=== PATIENT | female | born 1970 | race Two or more races ===

== ENCOUNTER 2024-01-15 15:30 | Emergency (ER) | payer MEDICAID, OTHER ==
[2024-01-15 15:59] VITALS: BP 168/91; PULSE 89; RESP 20; O2SAT 95
[2024-01-15 16:29] LABS: Basophils # (auto) 0.1 10 ^3/uL (0-0.2); Basophils % (auto) 0.9 % (0.0-2.0); Eosinophils # (auto) 0.2 10 ^3/uL (0-0.8); Eosinophils % (auto) 3.7 % (0.0-7.0); Hematocrit 40.5 % (36.0-46.0); Hemoglobin 14.2 g/dL (12.2-16.2); Lymphocytes # (auto) 1.3 10 ^3/uL (0.4-5.4); Lymphocytes % (auto) 22.8 % (10.0-50.0); Mean Corpuscular Hemoglobin 32.5 pg (28.0-32.0); Mean Corpuscular Hgb Conc. 35.2 g/dL (32.0-36.0); Mean Corpuscular Volume 92.3 fL (80.0-100.0); Monocytes # (auto) 0.4 10 ^3/uL (0-1.3); Monocytes % (auto) 6.4 % (0.0-12.0); Neutrophils # (auto) 3.9 10 ^3/uL (1.6-8.6); Neutrophils % (auto) 66.2 % (37.0-80.0); Nucleated Red Blood Cells % 0.1 %; Platelet Count (auto) 215 10^3/uL (140-450); Red Blood Cells 4.39 10^6/uL (4.0-5.20); Red Cell Distribution Width 12.4 % (11.8-14.3); White Blood Cell 5.9 10^3/uL (4.4-10.8)
[2024-01-15 16:46] LABS: Alanine Aminotransferase 15 U/L (7-40); Albumin 4.2 g/dL (3.2-4.8); Alkaline Phosphatase 125 U/L (46-116); Aspartate Aminotransferase 14 U/L (13-40); BUN/Creatinine Ratio 16.5 (10.0-20.0); Bilirubin, Total 0.5 mg/dL (0.2-1.0); Blood Urea Nitrogen 14 mg/dL (9-23); Calcium 9.5 mg/dL (8.7-10.4); Chloride 104 mmol/L (98-107); Glucose 377 mg/dL (74-106); Magnesium 1.9 mg/dL (1.6-2.6); Potassium 4.7 mmol/L (3.5-5.1); Sodium 137 mmol/L (136-145); Total Protein 6.6 g/dL (5.7-8.2)
[2024-01-15 16:54] LABS: Anion Gap 9 (5-15); Carbon Dioxide 24 mmol/L (20-31)
[2024-01-15] MEDS ORDERED: SODIUM CHLORIDE 0.9% 1,000 ML IV ONE (23:15)
[2024-01-15] MEDS ORDERED: METF-489 PO (23:17)
[2024-01-15] MEDS ORDERED: GLIP5TAB21 PO (23:17)
== END 2024-01-16 00:02 | disposition left against medical advice (07) ==
LOC: ER 15:38
DX: E11.65 Type 2 diabetes mellitus with hyperglycemia (principal); I10 Essential (primary) hypertension; E78.5 Hyperlipidemia, unspecified
CPT/HCPCS: 36415; 71046; 80053; 82962; 83735; 84484; 85025; 93005

== ENCOUNTER 2024-08-14 10:18 | Inpatient (IN) | payer MEDICAID, OTHER ==
[~2024-08-14] VITALS: Ht 162.6 cm; Wt 82.7 kg
[~2024-08-14 10:18] MED LIST: GLIP5TAB21 PO; METF-489 PO
[2024-08-14 10:22] VITALS: BP 127/86; RESP 16; TEMP 98.5; O2SAT 100
--- NOTE | 2024-08-14 10:29 | ECG ---
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
[2024-08-14] MEDS ORDERED: PANTOPRAZOLE 40 MG TAB PO ONE (10:45)
[2024-08-14] MEDS ORDERED: LIDOCAINE VISCOUS 2% 15ML UD PO ONE (10:45)
[2024-08-14] MEDS ORDERED: ASPirin-EC 325mg tab PO ONE (10:45)
[2024-08-14 10:48] LABS: Basophils # (auto) 0.1 10 ^3/uL (0-0.2); Eosinophils # (auto) 0.1 10 ^3/uL (0-0.8); Eosinophils % (auto) 2.1 % (0.0-7.0); Hematocrit 41.2 % (36.0-46.0); Hemoglobin 14.4 g/dL (12.2-16.2); Lymphocytes # (auto) 1.4 10 ^3/uL (0.4-5.4); Lymphocytes % (auto) 21.2 % (10.0-50.0); Mean Corpuscular Hemoglobin 29.8 pg (28.0-32.0); Mean Corpuscular Hgb Conc. 34.9 g/dL (32.0-36.0); Mean Corpuscular Volume 85.4 fL (80.0-100.0); Monocytes # (auto) 0.4 10 ^3/uL (0-1.3); Monocytes % (auto) 5.7 % (0.0-12.0); Neutrophils # (auto) 4.5 10 ^3/uL (1.6-8.6); Nucleated Red Blood Cells % 0.2 %; Platelet Count (auto) 223 10^3/uL (140-450); Red Blood Cells 4.82 10^6/uL (4.0-5.20); Red Cell Distribution Width 11.8 % (11.8-14.3); White Blood Cell 6.5 10^3/uL (4.4-10.8)
--- NOTE | 2024-08-14 10:58 | ED.PDOC ---
HPI Comments 53-year-old female coming from Urgent Care presents with a chief complaint of Chest Pain, SOB, and constipation x 3 days. Patient states that her pain is localized to her sternal region, nonradiating, and describes as heaviness. Patient mentions that she initially went to urgent care because her symptoms have been worsening over the last few days. Patient does not take home O2 and takes ASA daily. Patient has history of heart stents. PMHx: DM, HTN, HLD, Breast Cancer, CAD PSHx: Coronary Stents, , Cholecystectomy Good: CP HPI: Poor Historian. REVIEW OF SYSTEMS: CONSTITUTIONAL: Denies acute: fever, diaphoresis, chills, generalized weakness. HEAD: Denies acute: headache, photophobia Eyes: Denies acute: Double vision, vision loss, eye pain, eye discharge. EARS: Denies acute: tinnitus, hearing loss, ear discharge, ear pain, THROAT: Denies acute: sore throat, swelling, difficulty swallowing , pain with swallowing, change in voice. NECK: Denies acute: neck pain, neck swelling, stiff neck. HEART: Denies acute : palpitations, LUNGS: Denies acute: , wheezing, cough, hemoptysis ABDOMEN: Denies acute: abdominal pain, Nausea, Vomiting, diarrhea, melena , hematemesis, hematochezia SKIN: Denies acute: rash, redness, lesions, itchiness. EXTREMITIES: Denies acute: calf pain, numbness, tingling, weakness, denies pain in extremity. Denies acute: Low back pain. Neuro: Denies acute: focal neurological deficit, motor or sensory focal neurological deficit, tremors, seizure like activity, confusion, dizziness, change in mental status, loss of bowel or bladder function, cauda equina like symptoms. : Denies acute: dysuria, hematuria, flank pain, increase in urinary frequency. PSYCH: Denies acute: hallucination, suicidal ideation, homicidal ideation. FEMALE: Denies acute: abnormal vaginal bleeding, foul odor, unusual discharge. PHYSICAL EXAM: General: ---mild---acute distress, awake and alert. Head: normocephalic, atraumatic. Neck: supple, trachea is midline, no swelling. Throat: Normal phonation. Eyes:, no erythema, no purulent discharge, no proptosis, no icterus. Heart: regular rate, regular rhythm, no significant murmur appreciated. Lungs: no apparent respiratory distress, Able to speak in full sentences. No wheezing, no rhonchi, no crackles. No stridors Clear to auscultation bilaterally. Abdomen: non tender to palpation, non distended, soft, no guarding, no rebound, + bowel sounds. Neuro: Awake, Alert, oriented to name, self, situation, follows commands GCS=15. Speech is normal. Skin: no petechia, no purpura, no cyanosis, non-pale, not jaundice. Lower extremities: --no - Pitting edema no deformity, no focal swelling, no calf TTP. Makes eye contact. moves all four extremities. Face: no apparent facial droop. Ambulating in the ED independently. No nuchal rigidity, Kernig's sign, Brudzinski's sign, no meningeal signs. ED COURSE: Chief Complaint: Chest Pain Time Seen by MD: 10:23 Reviewed Notes: Medications, Allergies Allergies: Coded Allergies: NO KNOWN ALLERGIES (Unverified , 01/15/24) Home Meds Active Scripts Metformin Hydrochloride (METFORMIN HCL ER) 500 Mg Tab, 1 TAB PO DAILY, #90 TAB 3 Refills Prov:MATHIEU PICHARDO 01/15/24 Glipizide (Glipizide) 5 Mg Tab, 1 TAB PO BID, #180 TAB 1 Refill Prov:MATHIEU PICHARDO 01/15/24 Information Source: Patient Mode of Arrival: Wheelchair Past Medical History PAST MEDICAL HISTORY: Cancer (BREAST), DM, High Lipids, HTN Surgical History: Cholecystectomy, , [employer] DATABASE 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 Was a procedure done?: No CP Differential Dx Differential Diagnosis: N/A Differential Diagnosis: Other (Ddx include but not limitied to gastritis, musculoskeletal pain, radiculopathy, atypical chest pain, dissection, aneurysm, ACS, unstable angina, hiatal hernia, GERD, anxiety, costochondritis, PE, pneumothroax, neoplasm, cardiac ischemia, drug abuse, anemia.) X-Ray, Labs, Meds, VS Vital Signs Date Time Temp Pulse Resp B/P (MAP) Pulse Ox O2 Delivery O2 Flow Rate FiO2 08/14/24 11:28 87 08/14/24 10:27 86 08/14/24 10:22 98.5 87 16 127/86 (100) 100 98.5 Lab Test 08/14/24 11:22 08/14/24 10:30 Range/Units Troponin I High Sensitivity < 3 L < 3 L </=34 ng/L White Blood Count 6.5 4.4-10.8 10^3/uL Red Blood Count 4.82 4.0-5.20 10^6/uL Hemoglobin 14.4 12.2-16.2 g/dL Hematocrit 41.2 36.0-46.0 % Mean Corpuscular Volume 85.4 80.0-100.0 fL Mean Corpuscular Hemoglobin 29.8 28.0-32.0 pg Mean Corpuscular Hemoglobin Concent 34.9 32.0-36.0 g/dL Red Cell Distribution Width 11.8 11.8-14.3 % Platelet Count 223 140-450 10^3/uL Mean Platelet Volume 7.6 6.9-10.8 fL Neutrophils (%) (Auto) 70.0 37.0-80.0 % Lymphocytes (%) (Auto) 21.2 10.0-50.0 % Monocytes (%) (Auto) 5.7 0.0-12.0 % Eosinophils (%) (Auto) 2.1 0.0-7.0 % Basophils (%) (Auto) 1.0 0.0-2.0 % Neutrophils # (Auto) 4.5 1.6-8.6 10 ^3/uL Lymphocytes # (Auto) 1.4 0.4-5.4 10 ^3/uL Monocytes # (Auto) 0.4 0-1.3 10 ^3/uL Eosinophils # (Auto) 0.1 0-0.8 10 ^3/uL Basophils # (Auto) 0.1 0-0.2 10 ^3/uL Nucleated Red Blood Cells 0.2 % D-Dimer, Quantitative 0.22 0.0-0.49 mg/L FEU Sodium Level 138 136-145 mmol/L Potassium Level 4.4 3.5-5.1 mmol/L Chloride Level 102 98-107 mmol/L Carbon Dioxide Level 28 20-31 mmol/L Anion Gap 8 5-15 Blood Urea Nitrogen 12 9-23 mg/dL Creatinine 0.82 0.550-1.02 mg/dL Glomerular Filtration Rate Calc 86 >90 mL/min BUN/Creatinine Ratio 14.6 10.0-20.0 Serum Glucose 393 H 74-106 mg/dL Lactic Acid Level 1.9 0.4-2.0 mmol/L Calcium Level 9.9 8.7-10.4 mg/dL Total Bilirubin 0.6 0.2-1.0 mg/dL Aspartate Amino Transferase (AST) 11 L 13-40 U/L Alanine Aminotransferase (ALT) 17 7-40 U/L Alkaline Phosphatase 127 H 46-116 U/L B-Type Natriuretic Peptide 16.49 0-100 pg/mL Total Protein 7.1 5.7-8.2 g/dL Albumin 4.3 3.2-4.8 g/dL Lipase 63 H 12-53 U/L PATIENT: SHIRLEY ESCALANTEACCT: [id number]: [id number] : 1970 LOC: ER ROOM / BED: / AGE / SEX: 53 / F ADM STATUS: REG ER SERVICE [id number] ORDERING PHYSICIAN: CHRISTINE SINGH DO PROCEDURE(s): CXRP - CHEST PORTABLE REASON: CP ORDER NUMBER(s): [id number], ACCESSION NUMBER(s): [id number] XY CHEST PORTABLE, HISTORY: CP COMPARISON: None None TECHNICAL DATA: 1 view of the chest was obtained. FINDINGS: Lines and tubes: None Cardiomediastinal silhouette: normal Pulmonary vasculature: normal Lung expansion: normal Lung airspace: normal Lung interstitium: normal Pleura: normal Pneumothorax: no Bones: Unremarkable Other: no IMPRESSION: No acute intrathoracic abnormality. ATED BY: SYLVESTER CROCKETT MD DICTATED DATE/TIME: 08/14/241103 SIGNED BY: SYLVESTER CROCKETT MD SIGNED DATE/TIME: 08/14/241103 Time of 1ST Reevaluation: 10:53 Reevaluation 1ST: Unchanged Patient Education/Counseling: Diagnosis, Treatment Family Education/Counseling: No Family Present Comments Patient presented with the above HPI.----chest pain/dyspnea--workup was initiated. patient was found with the above mentioned diagnosis. the following medications were ordered: please refer to order lists of meds and tests obtained by myself Dr. Singh. Patient ED course and VS have been stabilized. Patient has been reassessed in the ED and remained in a stable condition. Pertinent incidental findings were discussed with the patient and/or family. Patient/family voices understanding and is agreeable with plan. Patient has been observed in the ED adequate length of time to insure improvement/stability. Escalation of care considered: Consideration of escalation to observation or admission Patient was ADMITTED to the medicine team for further evaluation and treatment of their presentation. All the reports of any imaging studies that were ordered by myself were reviewed by myself. Departure 1 Departure Time of Disposition: 11:17 Impression: Primary Impression: Chest pain Additional Impression: Dyspnea Disposition: ADMITTED INPATIENT Admit to: Tele Condition: Guarded Discharged With: Self Critical Care Note Critical Care Time?: No Heart Score Heart Score: Heart Score Response (Comments) Value History Moderate Suspicious 1 EKG Normal 0 Age 45-64 1 Risk Factors >3 or Hx ASHD 2 Troponin Normal limit 0 Total 4 I personally scribed for CHRISTINE SINGH DO ([email or web address]) on 08/14/24 at 10:58. Electronically submitted by Leonard Gutierrez ([email or web address]). I personally scribed for CHRISTINE SINGH DO ([email or web address]) on 08/14/24 at 12:43. Electronically submitted by Leonard Gutierrez ([email or web address]). CHRISTINE SINGH DO August 14, 2024 10:58
[2024-08-14 11:04] LABS: Alanine Aminotransferase 17 U/L (7-40); Anion Gap 8 (5-15); BUN/Creatinine Ratio 14.6 (10.0-20.0); Blood Urea Nitrogen 12 mg/dL (9-23); Calcium 9.9 mg/dL (8.7-10.4); Carbon Dioxide 28 mmol/L (20-31); Chloride 102 mmol/L (98-107); Potassium 4.4 mmol/L (3.5-5.1); Sodium 138 mmol/L (136-145); Total Protein 7.1 g/dL (5.7-8.2)
[2024-08-14 11:05] LABS: Albumin 4.3 g/dL (3.2-4.8); Bilirubin, Total 0.6 mg/dL (0.2-1.0)
[2024-08-14 11:06] LABS: Alkaline Phosphatase 127 U/L (46-116); Aspartate Aminotransferase 11 U/L (13-40); Glucose 393 mg/dL (74-106)
--- NOTE | 2024-08-14 11:06 | DVH ---
XY CHEST PORTABLE, HISTORY: CP COMPARISON: None None TECHNICAL DATA: 1 view of the chest was obtained. FINDINGS: Lines and tubes: None Cardiomediastinal silhouette: normal Pulmonary vasculature: normal Lung expansion: normal Lung airspace: normal Lung interstitium: normal Pleura: normal Pneumothorax: no Bones: Unremarkable Other: no IMPRESSION: No acute intrathoracic abnormality.
[2024-08-14 11:19] LABS: Lipase 63 U/L (12-53)
[2024-08-14 11:28] VITALS: PULSE 87
--- NOTE | 2024-08-14 14:22 | DVHHP2 ---
Admitting Diagnosis: Chest Pain and SOB. History of Present Illness Patient is a 53-year-old female with a complaint of chest pain, shortness of breath, and constipation for the past 3 days. Patient states that her pain does not radiate. Patient states that she went to the urgent care but her symptoms have progressively became worse over the past few days. Patient denies home O2 use. While in the emergency department the patient was evaluated by the provider, As per provider: Labs, vital signs, and imagining monitored. Patient will be admitted for further evaluation and treatment. I discussed admission with the patient/family and is in agreement to treatment plan. Allergies: Coded Allergies: NO KNOWN ALLERGIES (Unverified , 01/15/24) Home Meds Active Scripts Metformin Hydrochloride (METFORMIN HCL ER) 500 Mg Tab, 1 TAB PO DAILY, #90 TAB 3 Refills Prov:MATHIEU PICHARDO 01/15/24 Glipizide (Glipizide) 5 Mg Tab, 1 TAB PO BID, #180 TAB 1 Refill Prov:MATHIEU PICHARDO 01/15/24 Current Medications Current Medications Medications (Trade) Dose Ordered Sig/Lisa Route PRN Reason Start Time Stop Time Status Last Admin Acetaminophen/ Hydrocodone Bitart (Boring 5/325MG Tab) 1 tab Q4HP PRN PO MODERATE PAIN (4-6 PAIN SCALE) 08/14/24 14:30 Temazepam (Restoril) 15 mg QHSP PRN PO FOR INSOMNIA 08/14/24 14:30 Ondansetron HCl (Zofran) 4 mg Q4HP PRN IV NAUSEA / VOMITING 08/14/24 14:30 Docusate Sodium (Colace Capsule) 100 mg BIDPRN PRN PO FOR CONSTIPATION 08/14/24 14:30 Enoxaparin Sodium (Lovenox) 40 mg DAILY SC 08/15/24 10:00 Acetaminophen (Tylenol Tablet) 650 mg Q6HP PRN PO PAIN SCALE 1-3 OR TEMP>100.4 08/14/24 14:30 Morphine Sulfate 2 mg Q4HPRN PRN IV SEVERE PAIN (7-10 PAIN SCALE) 08/14/24 14:30 Pantoprazole Sodium (Protonix) 40 mg DAILY IV 08/15/24 10:00 Nitroglycerin (Ntrostat Sublingual) 0.4 mg Q5MINP PRN SL FOR CHEST PAIN 08/14/24 14:30 Morphine Sulfate 2 mg Q30M PRN IV FOR CHEST PAIN 08/14/24 14:30 Diagnostic Test (Pha) (Accu-Chek Comfort Curve T) 1 strip ACHS 08/14/24 17:00 Insulin Human Regular (InsuLIN R) HS SC 08/14/24 22:00 Insulin Human Regular (InsuLIN R) AC SC 08/14/24 17:00 Dextrose 50 ml UD PRN IV Blood Sugar LESS THAN 60 08/14/24 14:30 Review of Systems Constitutional: denies chills, denies fever, denies malaise Eyes: denies eye pain, denies vision change ENT: denies ear pain, denies headache, denies nasal congestion, denies painful swallowing, denies voice change Cardiovascular: denies edema, denies orthopnea, Respiratory: denies cough, denies shortness of breath Gastrointestinal: denies constipation, denies diarrhea, denies nausea, denies vomiting Genitourinary: denies dysuria, denies frequent urination, denies urethral discharge Musculoskeletal: denies back pain, denies joint pain, denies muscle pain Skin: denies bruising, denies itching, denies rash Neurological: denies focal weakness, denies headache, denies sensory changes Psychiatric: denies anxiety, denies depression Endocrine: denies polydipsia, denies polyuria Hematologic/Lymphatic: denies easy bleeding, denies easy bruising, denies enlarged lymph nodes Allergic/Immunologic: denies allergy, denies hives Vital Signs Vital Signs Date Time Temp Pulse Resp B/P (MAP) Pulse Ox O2 Delivery O2 Flow Rate FiO2 08/14/24 11:28 87 08/14/24 10:22 98.5 16 127/86 (100) 100 98.5 Physical Exam General Appearance: alert, no distress HEENT: EOMI, PERRLA, normal external inspect of ears, no icterus, no nasal drainage Neck: no carotid bruit, no jugular venous distention (JVD), no lymphadenopathy Chest: normal thorax Respiratory: clear to auscultation, normal air movement Cardiovascular: no diastolic murmur, no jugular venous distention (JVD), no rub, no systolic murmur Abdominal: soft, no hepatomegaly, no mass, no splenomegaly, no tenderness Genitourinary: grossly normal external Musculoskeletal: no joint tenderness, no swelling Extremities: normal pulses, no calf tenderness, no clubbing, no cyanosis, no edema Skin: no bruising, no jaundice, no rash Neurological: alert, No focal deficit Results Labs Test 08/14/24 11:22 08/14/24 10:30 Range/Units Troponin I High Sensitivity < 3 L </=34 ng/L White Blood Count 6.5 4.4-10.8 10^3/uL Red Blood Count 4.82 4.0-5.20 10^6/uL Hemoglobin 14.4 12.2-16.2 g/dL Hematocrit 41.2 36.0-46.0 % Mean Corpuscular Volume 85.4 80.0-100.0 fL Mean Corpuscular Hemoglobin 29.8 28.0-32.0 pg Mean Corpuscular Hemoglobin Concent 34.9 32.0-36.0 g/dL Red Cell Distribution Width 11.8 11.8-14.3 % Platelet Count 223 140-450 10^3/uL Mean Platelet Volume 7.6 6.9-10.8 fL Neutrophils (%) (Auto) 70.0 37.0-80.0 % Lymphocytes (%) (Auto) 21.2 10.0-50.0 % Monocytes (%) (Auto) 5.7 0.0-12.0 % Eosinophils (%) (Auto) 2.1 0.0-7.0 % Basophils (%) (Auto) 1.0 0.0-2.0 % Neutrophils # (Auto) 4.5 1.6-8.6 10 ^3/uL Lymphocytes # (Auto) 1.4 0.4-5.4 10 ^3/uL Monocytes # (Auto) 0.4 0-1.3 10 ^3/uL Eosinophils # (Auto) 0.1 0-0.8 10 ^3/uL Basophils # (Auto) 0.1 0-0.2 10 ^3/uL Nucleated Red Blood Cells 0.2 % D-Dimer, Quantitative 0.22 0.0-0.49 mg/L FEU Sodium Level 138 136-145 mmol/L Potassium Level 4.4 3.5-5.1 mmol/L Chloride Level 102 98-107 mmol/L Carbon Dioxide Level 28 20-31 mmol/L Anion Gap 8 5-15 Blood Urea Nitrogen 12 9-23 mg/dL Creatinine 0.82 0.550-1.02 mg/dL Glomerular Filtration Rate Calc 86 >90 mL/min BUN/Creatinine Ratio 14.6 10.0-20.0 Serum Glucose 393 H 74-106 mg/dL Lactic Acid Level 1.9 0.4-2.0 mmol/L Calcium Level 9.9 8.7-10.4 mg/dL Total Bilirubin 0.6 0.2-1.0 mg/dL Aspartate Amino Transferase (AST) 11 L 13-40 U/L Alanine Aminotransferase (ALT) 17 7-40 U/L Alkaline Phosphatase 127 H 46-116 U/L B-Type Natriuretic Peptide 16.49 0-100 pg/mL Total Protein 7.1 5.7-8.2 g/dL Albumin 4.3 3.2-4.8 g/dL Lipase 63 H 12-53 U/L Admitting Diagnosis: 1. Unstable angina Cardiology consult, monitoring 2. Obesity Diet education, monitoring 3. DM II with hyperglycemia Insulin sliding scale 4. Elevated lipase levels Trend troponin levels Plan discussed with: Patient, Other CLARE BILLS NP August 14, 2024 14:22
[2024-08-14] MEDS ORDERED: MORPHINE SULFATE INJ 2 MG/ml SYRG IV PRN ×2 (14:30)
[2024-08-14] MEDS ORDERED: ACETAMINOPHEN 325 MG TAB PO PRN (14:30)
[2024-08-14] MEDS ORDERED: NITROGLYCERIN 0.4 MG SL TAB SL PRN (14:30)
[2024-08-14] MEDS ORDERED: HYDROcodone-ACET 5/325MG TAB PO PRN (14:30)
[2024-08-14] MEDS ORDERED: DEXTROSE (50%) 50ML SYRG IV PRN (14:30)
[2024-08-14] MEDS ORDERED: ONDANSETRON HCL 4 MG/2 ML VIAL IV PRN (14:30)
[2024-08-14] MEDS ORDERED: DOCUSATE SOD 100 MG CAP PO PRN (14:30)
[2024-08-14] MEDS ORDERED: TEMAZEPAM 15 MG CAP PO PRN (14:30)
[2024-08-14] MEDS ORDERED: ACCU-CHEK COMFORT CURVE STRIP VI SCH (17:00)
[2024-08-14] MEDS ORDERED: InsuLIN REG 1unit/0.01ml Soln (100units/ml) SC SCH ×2 (17:00→22:00)
--- NOTE | 2024-08-15 08:03 | ECG ---
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
[2024-08-15] MEDS ORDERED: PANTOPRAZOLE 40 MG/10 ML VIAL INJ IV SCH (10:00)
[2024-08-15] MEDS ORDERED: ENOXAPARIN SOD 40 MG/0.4 ML SYRINGE SC SCH (10:00)
--- NOTE | 2024-08-15 10:56 | DVHDS2 ---
Discharge Summary Date of Admission August 14, 2024 at 14:19 Date of Discharge: August 14, 2024 Labs/Diagnostic Data: Laboratory Results Test 08/14/24 11:22 08/14/24 10:30 Troponin I High Sensitivity < 3 ng/L (</=34) White Blood Count 6.5 10^3/uL (4.4-10.8) Red Blood Count 4.82 10^6/uL (4.0-5.20) Hemoglobin 14.4 g/dL (12.2-16.2) Hematocrit 41.2 % (36.0-46.0) Mean Corpuscular Volume 85.4 fL (80.0-100.0) Mean Corpuscular Hemoglobin 29.8 pg (28.0-32.0) Mean Corpuscular Hemoglobin Concent 34.9 g/dL (32.0-36.0) Red Cell Distribution Width 11.8 % (11.8-14.3) Platelet Count 223 10^3/uL (140-450) Mean Platelet Volume 7.6 fL (6.9-10.8) Neutrophils (%) (Auto) 70.0 % (37.0-80.0) Lymphocytes (%) (Auto) 21.2 % (10.0-50.0) Monocytes (%) (Auto) 5.7 % (0.0-12.0) Eosinophils (%) (Auto) 2.1 % (0.0-7.0) Basophils (%) (Auto) 1.0 % (0.0-2.0) Neutrophils # (Auto) 4.5 10 ^3/uL (1.6-8.6) Lymphocytes # (Auto) 1.4 10 ^3/uL (0.4-5.4) Monocytes # (Auto) 0.4 10 ^3/uL (0-1.3) Eosinophils # (Auto) 0.1 10 ^3/uL (0-0.8) Basophils # (Auto) 0.1 10 ^3/uL (0-0.2) Nucleated Red Blood Cells 0.2 % D-Dimer, Quantitative 0.22 mg/L FEU (0.0-0.49) Sodium Level 138 mmol/L (136-145) Potassium Level 4.4 mmol/L (3.5-5.1) Chloride Level 102 mmol/L (98-107) Carbon Dioxide Level 28 mmol/L (20-31) Anion Gap 8 (5-15) Blood Urea Nitrogen 12 mg/dL (9-23) Creatinine 0.82 mg/dL (0.550-1.02) Glomerular Filtration Rate Calc 86 mL/min (>90) BUN/Creatinine Ratio 14.6 (10.0-20.0) Serum Glucose 393 mg/dL (74-106) Lactic Acid Level 1.9 mmol/L (0.4-2.0) Calcium Level 9.9 mg/dL (8.7-10.4) Total Bilirubin 0.6 mg/dL (0.2-1.0) Aspartate Amino Transferase (AST) 11 U/L (13-40) Alanine Aminotransferase (ALT) 17 U/L (7-40) Alkaline Phosphatase 127 U/L (46-116) B-Type Natriuretic Peptide 16.49 pg/mL (0-100) Total Protein 7.1 g/dL (5.7-8.2) Albumin 4.3 g/dL (3.2-4.8) Lipase 63 U/L (12-53) Other Laboratory Tests 08/14/24 10:30 Brief Hx & Hospital Course: Patient is a 53-year-old female with a complaint of chest pain, shortness of breath, and constipation for the past 3 days. Patient states that her pain does not radiate. Patient states that she went to the urgent care but her symptoms have progressively became worse over the past few days. Patient denies home O2 use. While in the emergency department the patient was evaluated by the provider, As per provider: Labs, vital signs, and imagining monitored. Patient left AGAINST MEDICAL ADVICE. Patient decided to leave prior to completing recommended evaluation and treatment. The patient decided they wanted to leave AMA. The patient was informed about the risk of leaving. And was informed about the risk that are involved if they left without any treatment which may include . The patient was okay with it and decided to leave without any intervention. The patient was told to return for any worsening symptoms. Condition at Discharge: Unstable Final Diagnosis/Problems List Unstable angina Obesity DM II with hyperglycemia Elevated lipase levels Discharge Disposition: AMA Discharge Statement: "Patient was advised to return to the ER or call 911 if any headaches, dizziness, shortness of breath, chest pain, abdominal pain, bleeding, fevers, or worsening of medical condition. Patient was counseled about treatment plan, medications, possible side effects, patientverbalized understanding. All questions were answered to the best of my ability. This discharge took greater then 30 minutes in planning, reviewing documentation, counseling the patient, and discussing with other team members." ASSESSMENT ASSESSMENT Assessment CLARE BILLS NP August 15, 2024 10:56
== END 2024-08-14 17:41 | disposition left against medical advice (07) | DRG 198 ==
LOC: ER 10:18 → OVERFLOW 14:19
PROVIDERS: ADMIT Nurse Practitioner; ATTEND Nurse Practitioner
DX: I25.110 Atherosclerotic heart disease of native coronary artery with unstable angina pectoris (principal); E11.65 Type 2 diabetes mellitus with hyperglycemia; I10 Essential (primary) hypertension; E66.9 Obesity, unspecified; Z68.31 Body mass index [BMI] 31.0-31.9, adult; K59.00 Constipation, unspecified; E78.5 Hyperlipidemia, unspecified; R74.8 Abnormal levels of other serum enzymes; Z53.29 Procedure and treatment not carried out because of patient's decision for other reasons; Z87.891 Personal history of nicotine dependence; Z85.3 Personal history of malignant neoplasm of breast; Z85.9 Personal history of malignant neoplasm, unspecified; Z90.49 Acquired absence of other specified parts of digestive tract
CPT/HCPCS: 36415; 36600; 71045; 80053; 82805; 83605; 83690; 83880; 84484; 85025; 85379; 93005; G0378

== ENCOUNTER 2024-11-19 15:49 | Emergency (ER) | payer OTHER ==
[~2024-11-19] VITALS: Ht 165.1 cm; Wt 82.0 kg
[2024-11-19 16:25] LABS: Hematocrit 38.9 % (36.0-46.0); Hemoglobin 13.7 g/dL (12.2-16.2); Mean Corpuscular Hemoglobin 30.5 pg (28.0-32.0); Mean Corpuscular Volume 86.4 fL (80.0-100.0); Nucleated Red Blood Cells % 0.1 %
--- NOTE | 2024-11-19 16:26 | ED.PDOC ---
General HPI Comments 53 y/o F, with PMHx of breast cancer, DM, HLD, and HTN presents to the ED for CC of flank pain. Patient states, she has been experiencing left flank pain directly under her left mastectomy incision x1day. patient reports, seeing her oncologist for SS and was told symptoms were not related. Patient denies back pain, dysuria, vaginal discharge, nausea, vomiting, or fever. No other symptoms or modifying factors present at this time. Patient was hypertensive and tachycardic at arrival. Chief Complaint: Flank Pain Time Seen by MD: 16:20 Reviewed notes: Nurses Notes, Medications, Allergies Allergies: Coded Allergies: NO KNOWN ALLERGIES (Unverified , 01/15/24) Home Meds Active Scripts Metformin Hydrochloride (METFORMIN HCL ER) 500 Mg Tab, 1 TAB PO DAILY, #90 TAB 3 Refills Prov:MATHIEU PICHARDO 01/15/24 Glipizide (Glipizide) 5 Mg Tab, 1 TAB PO BID, #180 TAB 1 Refill Prov:AMTHIEU PICHARDO 01/15/24 Information Source: Patient Mode of Arrival: Ambulatory Severity: Moderate Timing: Days Duration: Since onset Prehospital treatment: None Onset: Spontaneous Symptoms: None History of: None Location: (L)Flank associated signs and symptoms: None Past Medical History PAST MEDICAL HISTORY: Cancer, DM, High Lipids, HTN Surgical History: Cholecystectomy, , [facility] [employer]ING [employer]ESSIONAL History: No Pertinent FLO[employer]ING PROFESSIONAL History Social History Smoker: Quit Greater Than 1 Year Alcohol: Denies ETOH Use Drugs: Denies Drug Use Lives In: Home Constitutional: denies: chills, diaphoresis, fatigue, fever, malaise, sweats, weakness, others EENTM: denies: blurred vision, double vision, ear bleeding, ear discharge, ear drainage, ear pain, ear ringing, eye pain, eye redness, hearing loss, mouth pain, mouth swelling, nasal discharge, nose bleeding, nose congestion, nose pain, photophobia, tearing, throat pain, throat swelling, voice changes, others Respiratory: denies: cough, hemoptysis, orthopnea, SOB at rest, shortness of breath, SOB with excertion, stridor, wheezing, others Cardiovascular: denies: chest pain, dizzy spells, diaphoresis, Dyspnea on exertion, edema, irregular heart beat, left arm pain, lightheadedness, palpitations, PND, syncope, others Gastrointestinal: denies: abdomen distended, abdominal pain, blood streaked bowels, constipated, diarrhea, dysphagia, difficulty swallowing, hematemesis, melena, nausea, poor appetite, poor fluid intake, rectal bleeding, rectal pain, vomiting, others Genitourinary: reports: flank pain (left); denies: abnormal vagina bleeding, burning, dyspareunia, dysuria, frequency, hematuria, incontinence, pain, pregn ant, vagina discharge, urgency, others Neurological: denies: dizziness, fainting, headache, left sided numbness, left sided weakness, numbness, paresthesia, pre-existing deficit, right sided numbness, right sided weakness, seizure, speech problems, tingling, tremors, weakness, others Musculoskeletal: denies: back pain, gout, joint pain, joint swelling, muscle pain, muscle stiffness, neck pain, others Integumetry: denies: bruises, change in color, change in hair/nails, dryness, laceration, lesions, lumps, rash, wounds, others Allergic/Immunocompromised: denies: Difficulty Healing, Frequent Infections, Hives, Itching, others Hematologic/Lymphatic: denies: anemia, blood clots, easy bleeding, easy bruising, swollen glands, others Endocrine: denies: excessive hunger, excessive sweating, excessive thirst, excessive urination, flushing, intolerance to cold, intolerance to heat, unexplained weight gain, unexplained weight loss, others Psychiatric: denies: anxiety, bipolar disorder, depression, hopeless, panic disorder, schizophrenia, sleepless, suicidal, others All Other Systems: Reviewed and Negative Physical Exam General Appearance: Moderate Distress (Moderate distress due to left-sided flank pain concerns. Patient appears older than her chronology. Patient appears to be in poor overall health.), Obese HEENT: Normal ENT Inspection, Pharynx Normal, TMs Normal Neck: Full Range of Motion, Non-Tender, Normal, Normal Inspection Respiratory: Chest Non-Tender, Lungs Clear, No Accessory Muscle Use, No R espiratory Distress, Normal Breath Sounds Cardiovascular: No Edema, No JVD, No Murmur, No Gallop, Normal Peripheral Pulses, Regular Rate/Rhythm Breast Exam: Other (Patient was in a tank top and the left-sided mastectomy scar was noted.), Deferred Gastrointestinal: No Pulsatile Mass, Normal Bowel Sounds, Other (Left-sided flank pain that has nonspecific to the CVA region. Patient states radiates into her belly. Difficult to assess due to body habitus.) Genitalia: Deferred Pelvic: Deferred Rectal: Deferred Extremities: No calf tenderness, Normal capillary refill, Normal inspection, Normal range of motion, Non-tender, No pedal edema Neurologic: Alert Cerebellar Function: NOT DONE Reflexes: NOT DONE Skin: Dry, Normal Color, Warm Lymphatic: No Adenopathy Was a procedure done? Was a procedure done?: No Differential Diagnosis Kidney stone (Female): Pyelonephritis, Urinary obstruction, Urolithiasis, Other (UTI, sepsis, electrolyte abnormality) Kidney stone (Male): N/A Penile/Scrotal: N/A Urinary Problem (Male): N/A X-Ray, Labs, Meds, VS Vital Signs Date Time Temp Pulse Resp B/P (MAP) Pulse Ox O2 Delivery O2 Flow Rate FiO2 11/19/24 21:52 84 16 100 Room Air* 0 21 11/19/24 21:42 98.3 84 16 158/86 (110) 100 98.3 11/19/24 15:50 98.7 103 16 157/74 99 98.7 Lab Test 11/19/24 19:05 11/19/24 18:14 11/19/24 16:05 Range/Units Urine Color Light-yellow Yellow Urine Clarity Clear Clear Urine pH 5.0 5.0-9.0 Urine Specific [place] 1.037 H 1.001-1.035 Urine Protein Negative Negative Urine Ketones Negative Negative Urine Blood Negative Negative /uL Urine Nitrite Negative Negative Urine Bilirubin Negative Negative Urine Urobilinogen Normal Negative mg/dL Urine Leukocyte Esterase Negative Negative /uL Urine RBC 1 0 - 4 /hpf Urine Microscopic WBC 1 0-5 /HPF Urine Squamous Epithelial Cells Mod <5 /hpf Urine Bacteria None seen None Seen /hpf Urine Glucose 4+ H Normal mg/dL Troponin I High Sensitivity < 3 L < 3 L </=34 ng/L White Blood Count 5.9 4.4-10.8 10^3/uL Red Blood Count 4.50 4.0-5.20 10^6/uL Hemoglobin 13.7 12.2-16.2 g/dL Hematocrit 38.9 36.0-46.0 % Mean Corpuscular Volume 86.4 80.0-100.0 fL Mean Corpuscular Hemoglobin 30.5 28.0-32.0 pg Mean Corpuscular Hemoglobin Concent 35.3 32.0-36.0 g/dL Red Cell Distribution Width 12.7 11.8-14.3 % Platelet Count 255 140-450 10^3/uL Mean Platelet Volume 8.0 6.9-10.8 fL Neutrophils (%) (Auto) 72.0 37.0-80.0 % Lymphocytes (%) (Auto) 19.5 10.0-50.0 % Monocytes (%) (Auto) 6.1 0.0-12.0 % Eosinophils (%) (Auto) 1.7 0.0-7.0 % Basophils (%) (Auto) 0.7 0.0-2.0 % Neutrophils # (Auto) 4.2 1.6-8.6 10 ^3/uL Lymphocytes # (Auto) 1.2 0.4-5.4 10 ^3/uL Monocytes # (Auto) 0.4 0-1.3 10 ^3/uL Eosinophils # (Auto) 0.1 0-0.8 10 ^3/uL Basophils # (Auto) 0 0-0.2 10 ^3/uL Nucleated Red Blood Cells 0.1 % Sodium Level 136 136-145 mmol/L Potassium Level 3.7 3.5-5.1 mmol/L Chloride Level 99 98-107 mmol/L Carbon Dioxide Level 29 20-31 mmol/L Anion Gap 8 5-15 Blood Urea Nitrogen 17 9-23 mg/dL Creatinine 1.07 H 0.550-1.02 mg/dL Glomerular Filtration Rate Calc 63 >90 mL/min BUN/Creatinine Ratio 15.9 10.0-20.0 Serum Glucose 457 *H 74-106 mg/dL Calcium Level 9.2 8.7-10.4 mg/dL B-Type Natriuretic Peptide 24.75 0-100 pg/mL Lipase 66 H 12-53 U/L Current Medications Medications (Trade) Dose Ordered Sig/Lisa Route Start Time Stop Time Status Last Admin Ketorolac Tromethamine (Toradol Injection) 30 mg ONCE ONCE IM 11/19/24 16:00 11/19/24 16:01 DC 11/19/24 21:30 Ondansetron HCl (Zofran Po) 4 mg ONCE ONCE PO 11/19/24 16:00 11/19/24 16:01 DC 11/19/24 21:28 Insulin Human Regular (InsuLIN R) 13 units ONCE ONCE SC 11/19/24 21:45 11/19/24 21:46 DC 11/19/24 21:[address] [address] Ph: [phone] DIAGNOSTIC IMAGING Diagnostic Imaging Report : [id number] Signed PATIENT: SHIRLEY ESCALANTE ACCT: [id number] UNIT: [id number] : 1970 LOC: ER ROOM / BED: / AGE / SEX: 53 / F ADM STATUS: REG ER SERVICE 1600 ORDERING PHYSICIAN: ELSY JARRETT PAC PROCEDURE(s): ABPL - CT AB PEL WO CON-NO ORAL OR IV REASON: DIFFUSE LEFT LOWER QUAD PAIN ORDER NUMBER(s): [id number], ACCESSION NUMBER(s): [id number] Exam: CT CT AB PEL WO CON-NO ORAL OR IV History: DIFFUSE LEFT LOWER QUAD PAIN Comparison Study: None TECHNIQUE: Multidetector CT of the abdomen was performed from lung bases to pubic symphysis. Imaging was performed without IV contrast. Axial, coronal and sagittal multiplanar reformats were obtained from the axial data set by the technologist. Radiation Dose Information: CT Dose: CTDI volume is 18.98 mGy. Dose-length product is 1074.48 mGy*cm FINDINGS: Evaluation of solid organs is limited due to lack of intravenous contrast use. Findings: Lung Bases: No acute or significant lung base finding. Normal heart size. No pleural or pericardial effusion. 7.5 by 2.2 cm fluid collection in the subcutaneous tissues over the right chest. Tissue density 10 Hounsfield units. Liver: The liver is normal in size. No focal lesions. Gallbladder and Biliary Tree: Gallbladder has been surgically removed. Spleen: Unremarkable Pancreas: The pancreas is grossly normal in appearance. Adrenal Glands: Unremarkable Kidneys: Kidneys are grossly normal without calculi or hydronephrosis. Bladder: Grossly unremarkable for degree of distention. Bowel: The stomach is grossly normal in appearance. Small bowel and colon are normal in caliber and distribution. The appendix is not visualized; however, no secondary findings of acute appendicitis identified. Ascites: Absent Lymphadenopathy: No mesenteric, retroperitoneal or periportal lymphadenopathy. Abdominal Wall and Mesentery: Unremarkable. Vasculature: The visualized abdominal aorta is normal in size and caliber. Evaluation of abdominal and pelvic vessels is limited due to lack of intravenous contrast. Pelvic Organs: Uterus mildly enlarged and heterogeneous measuring 11.4 by 5.4 x 9.5 cm Musculoskeletal: No aggressive focal bony lesions, acute fractures or dislocation. Soft tissues: Unremarkable IMPRESSION: 1. 7.5 x 2.2 cm subcutaneous fluid collection over the right chest correlate for recent breast surgery. 2. Mildly enlarged uterus measuring 11.4 by 5.4 x 9.5 cm. 3. Sigmoid diverticulosis no free air or free fluid. Findings may represent non complicated diverticulitis. Radiation optimization: All CT scans at this facility use at least one of these dose optimization techniques: automated exposure control mA and/or kV adjustment per patient size (includes targeted exams where dose is matched to clinical indication) or iterative reconstruction. ATED BY: JAROD SMITH Jr., DO DICTATED DATE/TIME: 11/19/241703 SIGNED BY: JAROD SMITH Jr., SIGNED DATE/TIME: 11/19/241703 CC: X-Ray, Labs, Meds, VS Comment It took hours to ascertain urine from the patient. Serum laboratories were remarkable for a significant hyperglycemic state with a blood sugar over 450. Additional laboratories were unremarkable. CT evaluation only showed a mildly enlarged uterus history of diverticulosis without diverticulitis. Urine was finally collected and I went to the lobby to informed the patient of the results, but it appears the patient had eloped from the facility. Time of 1ST Reevaluation: 23:52 Reevaluation 1ST: Improved Consultation: PCP Patient Education/Counseling: Diagnosis, Treatment Family Education/Counseling: Diagnosis, Treatment, No Family Present SEPSIS Sepsis Screen Date sepsis recognized/suspect: Nov 19, 2024 Time Sepsis recognized/suspect: 1553 Recent Procedure: No On Antibiotic Therapy: No Respiratory Rate >20: No Heart Rate >90: Yes Temp<36 C (96.8 F) or >38.3 C: No SBP <90 or MAP <65 mmHG: No New Acute Mental Status Change: No Is the patient on CPAP, BIPAP,: No Physician Orders Troponin-I Hs (11/20/24 00:00) Troponin-I Hs (11/20/24 03:00) Electrocardigram (11/19/24 15:54) Ct Ab Pel Wo Con-No Oral Or Iv (11/19/24 16:00) Heplock Iv (11/19/24 ) Vital Signs Date Time Temp Pulse Resp B/P (MAP) Pulse Ox O2 Delivery O2 Flow Rate FiO2 11/19/24 21:52 84 16 100 Room Air* 0 21 11/19/24 21:42 98.3 84 16 158/86 (110) 100 98.3 11/19/24 15:50 98.7 103 16 157/74 99 98.7 Laboratory Tests Test 11/19/24 16:05 White Blood Count 5.9 10^3/uL (4.4-10.8) Medications Medications Dose Ordered Sig/Lisa Route Start Time Stop Time Status Last Admin Dose Admin Insulin Human Regular 13 units ONCE ONCE SC 11/19/24 21:45 11/19/24 21:46 DC 11/19/24 21:49 Ketorolac Tromethamine 30 mg ONCE ONCE IM 11/19/24 16:00 11/19/24 16:01 DC 11/19/24 21:30 Ondansetron HCl 4 mg ONCE ONCE PO 11/19/24 16:00 11/19/24 16:01 DC 11/19/24 21:28 Departure 1 Departure Time of Disposition: 23:52 Impression: Primary Impression: Flank pain Disposition: LEFT AWOL/ELOPED Condition: Stable Discharged With: Self Critical Care Note Critical Care Time?: No Stability Stability form required: No Heart Score Heart Score: Heart Score Response (Comments) Value History N/A 0 EKG N/A 0 Age N/A 0 Risk Factors N/A 0 Troponin N/A 0 Total 0 I personally scribed for ELSY JARRETT PAC ([email or web address]) on 11/19/24 at 16:26. Electronically submitted by Annabel Lowe ([email or web address]). I personally scribed for ELSY JARRETT PAC ([email or web address]) on 11/19/24 at 17:50. Electronically submitted by Annabel Lowe ([email or web address]). ELSY JARRETT PAC Nov 19, 2024 16:26
[2024-11-19 16:37] LABS: Chloride 99 mmol/L (98-107); Potassium 3.7 mmol/L (3.5-5.1); Sodium 136 mmol/L (136-145)
[2024-11-19 16:38] LABS: Anion Gap 8 (5-15); Calcium 9.2 mg/dL (8.7-10.4); Carbon Dioxide 29 mmol/L (20-31)
[2024-11-19 16:43] LABS: BUN/Creatinine Ratio 15.9 (10.0-20.0); Blood Urea Nitrogen 17 mg/dL (9-23)
[2024-11-19 16:52] LABS: Glucose 457 mg/dL (74-106)
[2024-11-19 17:05] LABS: Lipase 66 U/L (12-53)
--- NOTE | 2024-11-19 17:07 | DVH ---
Exam: CT CT AB PEL WO CON-NO ORAL OR IV History: DIFFUSE LEFT LOWER QUAD PAIN Comparison Study: None TECHNIQUE: Multidetector CT of the abdomen was performed from lung bases to pubic symphysis. Imaging was performed without IV contrast. Axial, coronal and sagittal multiplanar reformats were obtained fr om the axial data set by the technologist. Radiation Dose Information: CT Dose: CTDI volume is 18.98 mGy. Dose-length product is 1074.48 mGy*cm FINDINGS: Evaluation of solid organs is limited due to lack of intravenous contrast use. Findings: Lung Bases: No acute or significant lung base finding. Normal heart size. No pleural or pericardial effusion. 7.5 by 2.2 cm fluid collection in the subcutaneous tissues over the right chest. Tissue den sity 10 Hounsfield units. Liver: The liver is normal in size. No focal lesions. Gallbladder and Biliary Tree: Gallbladder has been surgically removed. Spleen: Unremarkable Pancreas: The pancreas is grossly normal in appearance. Adrenal Glands: Unremarkable Kidneys: Kidneys are grossly normal without calculi or hydronephrosis. Bladder: Grossly unremarkable for degree of distention. Bowel: The stomach is grossly normal in appearance. Small bowel and colon are normal in caliber and d istribution. The appendix is not visualized; however, no secondary findings of acute appendicitis id entified. Ascites: Absent Lymphadenopathy: No mesenteric, retroperitoneal or periportal lymphadenopathy. Abdominal Wall and Mesentery: Unremarkable. Vasculature: The visualized abdominal aorta is normal in size and caliber. Evaluation of abdominal a nd pelvic vessels is limited due to lack of intravenous contrast. Pelvic Organs: Uterus mildly enlarged and heterogeneous measuring 11.4 by 5.4 x 9.5 cm Musculoskeletal: No aggressive focal bony lesions, acute fractures or dislocation. Soft tissues: Unremarkable IMPRESSION: 1. 7.5 x 2.2 cm subcutaneous fluid collection over the right chest correlate for recent breast surger y. 2. Mildly enlarged uterus measuring 11.4 by 5.4 x 9.5 cm. 3. Sigmoid diverticulosis no free air or free fluid. Findings may represent non complicated diverticu litis. Radiation optimization: All CT scans at this facility use at least one of these dose optimization mitra hniques: automated exposure control mA and/or kV adjustment per patient size (includes targeted exam s where dose is matched to clinical indication) or iterative reconstruction.
[2024-11-19] MEDS ORDERED: InsuLIN REG 1unit/0.01ml Soln (100units/ml) IV ONE (17:15)
[2024-11-19] MEDS: ONDANSETRON ODT 4 MG TAB PO ONE (21:28)
[2024-11-19] MEDS: KETOROLAC TROMETH 60MG/2ML VIAL IM ONE (21:30)
[2024-11-19 21:42] VITALS: BP 158/86; TEMP 98.3
[2024-11-19] MEDS: SODIUM CHLORIDE 0.9% 1,000 ML IV ONE (21:43)
[2024-11-19] MEDS: InsuLIN REG 1unit/0.01ml Soln (100units/ml) SC ONE (21:49)
[2024-11-19 21:52] VITALS: PULSE 84; RESP 16; O2SAT 100
[2024-11-19 22:11] LABS: Urine Protein, UAD Negative (Negative)
== END 2024-11-19 23:48 | disposition left against medical advice (07) ==
LOC: ER 15:49
DX: R10.9 Unspecified abdominal pain (principal); I10 Essential (primary) hypertension; E11.9 Type 2 diabetes mellitus without complications; E78.5 Hyperlipidemia, unspecified; Z79.84 Long term (current) use of oral hypoglycemic drugs; Z85.3 Personal history of malignant neoplasm of breast; Z90.49 Acquired absence of other specified parts of digestive tract; Z90.710 Acquired absence of both cervix and uterus; Z79.899 Other long term (current) drug therapy
CPT/HCPCS: 36415; 74176; 80048; 81001; 82947; 83690; 83880; 84484; 85025; 96372; 99285; J1815; J1885; Q0162